=== PATIENT | male | born 1955 | race Caucasian/White ===

== ENCOUNTER 2016-12-04 14:17 | Observation (INO) | payer MEDICARE, OTHER ==
[~2016-12-04] VITALS: Ht 165.1 cm; Wt 93.6 kg
[~2016-12-04 14:17] MED LIST: ADULT LOW DOSE81 MG PO; AFRIN15 M1; ALLERCLEAR10 MG PO; AMARYL 2MG TABLE2 MG PO; COREG 12.5MG12.5 MG PO; FERREX 150150 MG PO; FLOMAX0.4 MG PO; FLONASE ALLER15.8 ML; HARVONI 90-4001 EACH PO; LASIX40 MG PO; LIDODERM PATCH 51 EA TOP; LIORESAL TAB 1010 MG PO; MULTIVITAMINS1 EAC1 PO; MYLICON CHEWABL80 MG PO; NEORAL100 MG PO; PLAVIX 75 MG TA75 MG PO; PRAVACHOL20 MG PO; PRILOSEC OTC20 MG PO; SANDIMMUNE PO; TRAZODONE HCL100 MG PO; TYLENOL 325MG325 MG PO; [UNRECOGNIZED DRUG - OTHER] PO
[2016-12-04 15:19] LABS: HEMOGLOBIN 10.1 gm/dl (14.0-17.5); RED BLOOD COUNT 2.94 M/UL (4.20-5.50); WHITE BLOOD COUNT 3.6 K/UL (4.5-11.0)
[2016-12-05 04:02] LABS: RED BLOOD COUNT 2.98 M/UL (4.20-5.50); WHITE BLOOD COUNT 2.8 K/UL (4.5-11.0)
[2016-12-05] MEDS ORDERED: OMEPRAZOLE20 M1 PO (10:00)
[2016-12-05] MEDS ORDERED: AMARYL 2MG TABLE2 MG PO (10:01)
[2016-12-05] MEDS ORDERED: ULTRAM50 MG PO (10:02)
[2016-12-05] MEDS ORDERED: NEURONTIN 400400 MG PO (10:02)
[2016-12-05] MEDS ORDERED: LINZESS145 MCG PO (10:03)
[2016-12-05] MEDS ORDERED: COLCRYS0.6 MG PO (10:04)
[2016-12-05] MEDS ORDERED: ZYRTEC10 MG PO (10:05)
[2016-12-05] MEDS ORDERED: ZYLOPRIM 100 M100 MG PO (10:05)
== END 2016-12-06 19:00 | disposition home or self-care (01) ==
LOC: ER1 14:17 → ZEROF 20:02 → CCU 12-05 12:44 → PROG CARE 12-05 18:00
PROVIDERS: Emergency Medicine; ADMIT Family Medicine
DX: R55 Syncope and collapse (principal); R07.9 Chest pain, unspecified; I25.10 Atherosclerotic heart disease of native coronary artery without angina pectoris; D61.818 Other pancytopenia; N18.3 Chronic kidney disease, stage 3 (moderate); E11.42 Type 2 diabetes mellitus with diabetic polyneuropathy; I13.0 Hypertensive heart and chronic kidney disease with heart failure and stage 1 through stage 4 chronic kidney disease, or unspecified chronic kidney disease; I50.32 Chronic diastolic (congestive) heart failure; J96.90 Respiratory failure, unspecified, unspecified whether with hypoxia or hypercapnia; M10.9 Gout, unspecified; E53.8 Deficiency of other specified B group vitamins; J30.2 Other seasonal allergic rhinitis; J45.909 Unspecified asthma, uncomplicated; I25.2 Old myocardial infarction; Z95.5 Presence of coronary angioplasty implant and graft; Z94.4 Liver transplant status; Z86.19 Personal history of other infectious and parasitic diseases; Z95.0 Presence of cardiac pacemaker; Z87.01 Personal history of pneumonia (recurrent); Z90.49 Acquired absence of other specified parts of digestive tract; Z79.899 Other long term (current) drug therapy; Z87.19 Personal history of other diseases of the digestive system; Z88.8 Allergy status to other drugs, medicaments and biological substances
CPT/HCPCS: ECHO; 36415; 70450; 71010; 78452; 80053; 80061; 82550; 82553; 83874; 83880; 84484; 85025; 93005; 93017; 93306; 93880; 99285; A9502; G0378; J2785; J7030

== ENCOUNTER 2020-10-01 14:34 | Emergency (ER) | payer MEDICARE, OTHER ==
[~2020-10-01 14:34] MED LIST changes: +CLINDAMYCIN HC300 MG PO; +COLCRYS0.6 MG PO; +DOCUSATE SODIU250 MG PO; +ELIQUIS 5 MG TAB5 MG PO; +ESTER-C 1,0001 EACH PO; +LINZESS145 MCG PO; +LORTAB 5-325 M1 EACH PO; +MEDROL DOSEPAK 24 MG PO; +MIRALAX17 GM PO; +NEURONTIN 400400 MG PO; +NORVASC2.5 MG PO; +OMEPRAZOLE20 M1 PO; +ONCE DAILY1 EACH PO; +ONDANSETRON HCL4 MG PO; +REGLAN 10 MG TA10 MG PO; +ULORIC80 MG PO; +ULTRAM50 MG PO; +ZETIA 10 MG TAB10 MG PO; +ZOFRAN4 MG PO; +ZYLOPRIM 100 M100 MG PO; +ZYLOPRIM100 MG PO; +ZYRTEC10 MG PO
[2020-10-01 15:32] LABS: HEMOGLOBIN 11.7 gm/dl (14.0-17.5); RED BLOOD COUNT 3.51 M/UL (4.20-5.50); WHITE BLOOD COUNT 4.4 K/UL (4.5-11.0)
== END 2020-10-01 18:05 | disposition home or self-care (01) ==
LOC: ER1 14:34
PROVIDERS: Emergency Medicine
DX: E11.65 Type 2 diabetes mellitus with hyperglycemia (principal); I12.9 Hypertensive chronic kidney disease with stage 1 through stage 4 chronic kidney disease, or unspecified chronic kidney disease; E11.22 Type 2 diabetes mellitus with diabetic chronic kidney disease; N18.9 Chronic kidney disease, unspecified; Z88.8 Allergy status to other drugs, medicaments and biological substances; R79.89 Other specified abnormal findings of blood chemistry; Z94.4 Liver transplant status
CPT/HCPCS: 80053; 80158; 81001; 82962; 83036; 83690; 83735; 84439; 84443; 85025; 99284

== ENCOUNTER → 2021-06-01 | Outpatient (CLI) | payer MEDICARE, OTHER | LOC: KOH-I 14:35 | DX: M79.671 Pain in right foot (principal); M19.071 Primary osteoarthritis, right ankle and foot | CPT/HCPCS: 73630 ==

== ENCOUNTER → 2021-08-18 | Outpatient (CLI) | payer MEDICARE, OTHER ==
[2021-08-19 09:13] LABS: A/G RATIO 2.1 (1.2-2.2); BILIRUBIN, TOTAL 1.4 mg/dL (0.0-1.2); CALCIUM, SERUM 9.5 mg/dL (8.6-10.2); CREATININE, SERUM 3.24 mg/dL (0.76-1.27); GLOBULIN, TOTAL 2.3 g/dL (1.5-4.5); POTASSIUM, SERUM 5.9 mmol/L (3.5-5.2); PROTEIN, TOTAL, SERUM 7.1 g/dL (6.0-8.5)
== END ==
LOC: LAB 12:54
DX: I10 Essential (primary) hypertension (principal)
CPT/HCPCS: 36415; 80053

== ENCOUNTER 2021-08-20 14:11 | Emergency (ER) | payer MEDICARE, OTHER ==
[2021-08-20 14:50] LABS: HEMOGLOBIN 11.2 gm/dl (14.0-17.5); RED BLOOD COUNT 3.35 M/UL (4.20-5.50); WHITE BLOOD COUNT 4.5 K/UL (4.5-11.0)
== END 2021-08-20 17:37 | disposition home or self-care (01) ==
LOC: ER1 14:11
PROVIDERS: Physician Assistant
DX: U07.1 COVID-19 (principal); N17.9 Acute kidney failure, unspecified; I12.9 Hypertensive chronic kidney disease with stage 1 through stage 4 chronic kidney disease, or unspecified chronic kidney disease; J44.9 Chronic obstructive pulmonary disease, unspecified; N18.9 Chronic kidney disease, unspecified; E86.0 Dehydration; Z88.8 Allergy status to other drugs, medicaments and biological substances
CPT/HCPCS: 80053; 81001; 85025; 87086; 99283

== ENCOUNTER → 2022-01-05 | Outpatient (CLI) | payer MEDICARE ==
[~2022-01-05] MED LIST changes: +AMARYL2 MG PO; +AMLODIPINE BESYL5 MG PO; +CARVEDILOL12.5 MG PO; +CEPHALEXIN500 MG PO; +CETIRIZINE HCL10 MG PO; +COLCHICINE 0.60.6 MG PO; +CYCLOSPORINE100 MG PO; +FEBUXOSTAT40 MG PO; +FISH OIL 1,0001 EAC1 PO; +HYDROCODON-ACE1 EAC4 PO; +LOSARTAN POTASS50 MG PO; -NORVASC2.5 MG PO; +NORVASC5 MG PO; +PREDNISONE5 MG PO; +PROTONIX40 MG PO; +SIMETHICONE180 MG PO; -ZETIA 10 MG TAB10 MG PO; +ZETIA10 MG PO
== END ==
LOC: EXRD 08:11
DX: Z13.6 Encounter for screening for cardiovascular disorders (principal); E11.8 Type 2 diabetes mellitus with unspecified complications; Z13.89 Encounter for screening for other disorder; E66.9 Obesity, unspecified; E11.22 Type 2 diabetes mellitus with diabetic chronic kidney disease; I12.9 Hypertensive chronic kidney disease with stage 1 through stage 4 chronic kidney disease, or unspecified chronic kidney disease; N18.4 Chronic kidney disease, stage 4 (severe); Z94.4 Liver transplant status; Z68.36 Body mass index [BMI] 36.0-36.9, adult
CPT/HCPCS: 93979

== ENCOUNTER → 2022-02-12 | Outpatient (CLI) | payer MEDICARE ==
[2022-02-12 08:52] LABS: HEMOGLOBIN 10.2 gm/dl (14.0-17.5); RED BLOOD COUNT 3.02 M/UL (4.20-5.50)
== END ==
LOC: LAB 08:33
PROVIDERS: Transplant Surgery
DX: Z48.23 Encounter for aftercare following liver transplant (principal)
CPT/HCPCS: 80053; 80158; 82977; 83735; 85025

== ENCOUNTER 2022-03-19 13:40 | Emergency (ER) | payer MEDICARE ==
[2022-03-19 14:42] LABS: HEMOGLOBIN 10.7 gm/dl (14.0-17.5); RED BLOOD COUNT 3.14 M/UL (4.20-5.50); WHITE BLOOD COUNT 4.7 K/UL (4.5-11.0)
== END 2022-03-19 18:32 | disposition home or self-care (01) ==
LOC: ER1 13:40
PROVIDERS: Physician Assistant Medical
DX: R53.1 Weakness (principal); E11.22 Type 2 diabetes mellitus with diabetic chronic kidney disease; I13.10 Hypertensive heart and chronic kidney disease without heart failure, with stage 1 through stage 4 chronic kidney disease, or unspecified chronic kidney disease; N18.9 Chronic kidney disease, unspecified; E78.5 Hyperlipidemia, unspecified; Z88.8 Allergy status to other drugs, medicaments and biological substances; Z86.73 Personal history of transient ischemic attack (TIA), and cerebral infarction without residual deficits; Z95.5 Presence of coronary angioplasty implant and graft; Z20.822 Contact with and (suspected) exposure to COVID-19
CPT/HCPCS: 70450; 71045; 80053; 81001; 82550; 82553; 83605; 83690; 83880; 84439; 84443; 84484; 85025; 85610; 93005; 96365; 99285; U0002

== ENCOUNTER → 2022-03-29 | Outpatient (CLI) | payer MEDICARE, OTHER ==
[2022-03-30 12:12] LABS: CREATININE, URINE 152.1 mg/dL (Not Estab.)
== END ==
LOC: LAB 08:31
PROVIDERS: Internal Medicine Nephrology
DX: N18.4 Chronic kidney disease, stage 4 (severe) (principal); Z94.4 Liver transplant status
CPT/HCPCS: 36415; 80053; 80158; 81001; 82043; 82570; 84156